=== PATIENT | male | born 1955 | race Two or more races ===

== ENCOUNTER 2022-05-01 16:27 | Inpatient (IN) | payer MEDICARE, MEDICAID ==
[~2022-05-01] VITALS: Ht 170.2 cm; Wt 91.9 kg
[2022-05-01] MEDS: LACTATED RINGER'S 500 ML IV ONE (02:14)
[2022-05-01 18:02] LABS: Albumin 3.4 g/dL (3.4-5.0); BUN/Creatinine Ratio 19.7; Calcium 8.8 mg/dL (8.5-10.1); Magnesium 2.3 mg/dL (1.6-2.6); Potassium 4.5 mmol/L (3.5-5.1)
[2022-05-01 18:06] LABS: Basophils # (auto) 0.1 10 ^3/uL (0-0.2); Basophils % (auto) 0.7 % (0.0-2.0); Eosinophils # (auto) 0.1 10 ^3/uL (0-0.8); Eosinophils % (auto) 1.5 % (0.0-7.0); Hematocrit 48.5 % (41.0-53.0); Lymphocytes # (auto) 2.4 10 ^3/uL (0.4-5.4); Lymphocytes % (auto) 27.8 % (10.0-50.0); Mean Corpuscular Hemoglobin 29.4 pg (28.0-32.0); Mean Corpuscular Volume 89.3 fL (80.0-100.0); Monocytes # (auto) 1.2 10 ^3/uL (0-1.3); Monocytes % (auto) 13.9 % (0.0-12.0); Neutrophils # (auto) 4.8 10 ^3/uL (1.6-8.6); Neutrophils % (auto) 56.1 % (37.0-80.0); Nucleated Red Blood Cells % 0.1 %; Red Blood Cells 5.44 10^6/uL (4.5-5.90); Red Cell Distribution Width 16.2 % (11.8-14.3); White Blood Cell 8.5 10^3/uL (4.4-10.8)
[2022-05-01 18:15] LABS: Bilirubin, Total 1.4 mg/dL (0.2-1.0)
[2022-05-01 18:50] LABS: INR 1.21 (0.9-1.15); Partial Thromboplastin Time 26.7 sec (24.6-33.4)
[2022-05-01] MEDS ORDERED: FUROSEMIDE 40 MG/4 ML VIAL IV ONE (20:15)
[2022-05-01] MEDS ORDERED: LACTATED RINGER'S 500 ML IV ONE (21:15)
[2022-05-01] MEDS ORDERED: IOHEXOL 350 MG/ML 100ML IJ ONE (21:25)
[2022-05-01] MEDS ORDERED: ONDANSETRON HCL 4 MG/2 ML VIAL IV PRN (21:30)
[2022-05-01] MEDS ORDERED: HYDROcodone-ACET 5/325MG TAB PO PRN (21:30)
[2022-05-01] MEDS ORDERED: ACETAMINOPHEN 325 MG TAB PO PRN (21:30)
[2022-05-01] MEDS ORDERED: DOCUSATE SOD 100 MG CAP PO PRN (21:30)
[2022-05-01 21:36] LABS: Bilirubin, Direct 0.5 mg/dL (0-0.2); Bilirubin, Total 1.3 mg/dL (0.2-1.0)
[2022-05-02] MEDS: SODIUM CHLOR 0.9% PF (SALINE LOCK) 10ML VIAL/SYR IV SCH ×4 (01:43→21:51)
[2022-05-02] MEDS: FUROSEMIDE 40 MG/4 ML VIAL IV SCH ×3 (02:14→21:51)
[2022-05-02] MEDS: HEPARIN SODIUM (PORCINE) 5000 UNITS/ML 1ML VIAL SC SCH ×4 (02:15→21:52)
[2022-05-02] MEDS: LACTATED RINGER'S 500 ML IV ONE (02:15)
[2022-05-02 03:45] LABS: Urine Bacteria NONE SEEN /hpf (None Seen); Urine Blood Negative /uL (Negative); Urine Hyaline Cast FEW /lpf (0 - 2); Urine Mucus FEW (None Seen); Urine Specific Gravity 1.037 (1.001-1.035); Urine WBC 15 /hpf (0 - 3)
[2022-05-02 09:00] VITALS: BP 132/91
[2022-05-02 09:51] VITALS: BP 97/53
[2022-05-02] MEDS: CARVEDILOL 12.5 MG TAB PO SCH ×2 (09:57→21:51)
[2022-05-02] MEDS ORDERED: ATORVASTATIN 20 MG TAB PO ONE (12:30)
[2022-05-02] MEDS ORDERED: ASPirin 81 mg TAB PO ONE (12:30)
[2022-05-02 13:00] VITALS: BP 120/76
[2022-05-02] MEDS ORDERED: ATOR20TA50 PO (13:50)
[2022-05-02] MEDS ORDERED: ASPI-325 PO (13:50)
[2022-05-02] MEDS ORDERED: FURO40TA4 PO (13:50)
[2022-05-02] MEDS ORDERED: CARV3.1240 PO (13:50)
[2022-05-02] MEDS ORDERED: POTA1TAB4 PO (13:50)
[2022-05-02] MEDS ORDERED: LOS25T PO (13:50)
[2022-05-02 14:44] LABS: Cholesterol 73 mg/dL (< 200); HDL Cholesterol 21 mg/dL (40-59); LDL Cholesterol 48 mg/dL (< 100); Triglycerides 59 mg/dL (< 150)
[2022-05-02 16:02] LABS: Alcohol, Urine < 3.0 mg/dL (0-10); Amphetamine Screen, Urine POSITIVE (NEGATIVE); Barbiturate Scree,Urine NEGATIVE (NEGATIVE); Benzodiazephine Screen, Urine NEGATIVE (NEGATIVE); Cannabinoid Screen, Urine NEGATIVE (NEGATIVE); Cocaine Screen, Urine NEGATIVE (NEGATIVE); Opiate Scree,Urine NEGATIVE (NEGATIVE); Phencyclidine Screen, Urine NEGATIVE (NEGATIVE)
[2022-05-02 17:00] VITALS: BP 97/53
[2022-05-02 20:00] VITALS: BP 114/84
[2022-05-02] MEDS: ATORVASTATIN 20 MG TAB PO SCH (21:51)
[2022-05-02 22:00] VITALS: BP 114/84
[2022-05-02] MEDS ORDERED: SACUBITRIL-VALSARTAN 24mg/26mg TAB PO SCH (22:00)
[2022-05-03 05:00] VITALS: BP 122/81
[2022-05-03] MEDS: HEPARIN SODIUM (PORCINE) 5000 UNITS/ML 1ML VIAL SC SCH ×3 (06:02→21:31)
[2022-05-03] MEDS: SODIUM CHLOR 0.9% PF (SALINE LOCK) 10ML VIAL/SYR IV SCH ×3 (06:03→21:30)
[2022-05-03 06:25] LABS: BUN/Creatinine Ratio 20.4; Calcium 8.6 mg/dL (8.5-10.1); Potassium 4.3 mmol/L (3.5-5.1)
[2022-05-03] MEDS: EMPAGLIFLOZIN 10 MG TAB PO SCH (06:27)
[2022-05-03 09:34] VITALS: BP 96/63
[2022-05-03] MEDS: ASPirin 81 mg TAB PO SCH (09:58)
[2022-05-03] MEDS: SACUBITRIL-VALSARTAN 24mg/26mg TAB PO SCH ×2 (09:59→21:27)
[2022-05-03] MEDS: cefTRIAXone 1GM/50ML D5W 50 ML IV SCH (10:00)
[2022-05-03] MEDS: FUROSEMIDE 40 MG/4 ML VIAL IV SCH ×2 (10:00→21:30)
[2022-05-03 12:37] VITALS: BP 93/60
[2022-05-03 16:38] VITALS: BP 99/76
[2022-05-03] MEDS: ATORVASTATIN 20 MG TAB PO SCH (21:27)
[2022-05-03 22:00] VITALS: BP 99/76
[2022-05-04 05:00] VITALS: BP 135/86
[2022-05-04] MEDS: HEPARIN SODIUM (PORCINE) 5000 UNITS/ML 1ML VIAL SC SCH ×2 (06:32→14:38)
[2022-05-04] MEDS: EMPAGLIFLOZIN 10 MG TAB PO SCH (06:33)
[2022-05-04] MEDS: SODIUM CHLOR 0.9% PF (SALINE LOCK) 10ML VIAL/SYR IV SCH ×2 (06:33→18:38)
[2022-05-04 09:28] VITALS: BP 127/84
[2022-05-04] MEDS: cefTRIAXone 1GM/50ML D5W 50 ML IV SCH (09:37)
[2022-05-04] MEDS: ASPirin 81 mg TAB PO SCH (09:37)
[2022-05-04] MEDS: SACUBITRIL-VALSARTAN 24mg/26mg TAB PO SCH (09:38)
[2022-05-04] MEDS: FUROSEMIDE 40 MG/4 ML VIAL IV SCH (09:39)
[2022-05-04] MEDS ORDERED: GLUCAGON HYDROCHLORIDE (RDNA) 1 MG VIAL IV ONE (12:30)
[2022-05-04 12:37] VITALS: BP 106/79
[2022-05-04 16:26] VITALS: BP 127/84
[2022-05-04 16:37] VITALS: BP 113/85
== END 2022-05-04 18:00 | DRG 291 ==
LOC: ER 16:27 → TELE 21:18 → TELE-EAST 05-02 08:24
PROVIDERS: ADMIT Internal Medicine; ATTEND Family Medicine
DX: I11.0 Hypertensive heart disease with heart failure (principal); I50.43 Acute on chronic combined systolic (congestive) and diastolic (congestive) heart failure; N39.0 Urinary tract infection, site not specified; R17 Unspecified jaundice; E66.9 Obesity, unspecified; E78.5 Hyperlipidemia, unspecified; I25.10 Atherosclerotic heart disease of native coronary artery without angina pectoris; F15.90 Other stimulant use, unspecified, uncomplicated; Z20.822 Contact with and (suspected) exposure to COVID-19; Z95.1 Presence of aortocoronary bypass graft; Z68.31 Body mass index [BMI] 31.0-31.9, adult
CPT/HCPCS: 36415; 71045; 71275; 76705; 80048; 80053; 80061; 80307; 81001; 82247; 82248; 83036; 83605; 83735; 83880; 84443; 84484; 85025; 85379; 85610; 85730; 87040; 87086; 87426; 87804; 93005; 93306; 93925; 97163; G0378; J0696

== ENCOUNTER 2023-05-19 22:14 | Inpatient (IN) | payer MEDICARE, MEDICAID ==
[~2023-05-19] VITALS: Ht 170.2 cm; Wt 76.5 kg
[~2023-05-19 22:14] MED LIST: ASPI-325 PO; ASPI-543 PO; ATOR20TA PO; ATOR20TA50 PO; CAR125T OR; CARV12.544 PO; CARV3.1240 PO; EMPA1TAB PO; FURO1TAB31 PO; FURO40TA4 PO; LISI-275 PO; LOS25T PO; POTA-220 PO; POTA1TAB4 PO
[2023-05-19 22:38] LABS: Basophils # (auto) 0 10 ^3/uL (0-0.2); Basophils % (auto) 0.6 % (0.0-2.0); Eosinophils # (auto) 0.1 10 ^3/uL (0-0.8); Eosinophils % (auto) 0.7 % (0.0-7.0); Hematocrit 42.3 % (41.0-53.0); Hemoglobin 13.9 g/dL (13.5-17.5); Lymphocytes % (auto) 24.9 % (10.0-50.0); Mean Corpuscular Hemoglobin 30.9 pg (28.0-32.0); Mean Corpuscular Hgb Conc. 32.7 g/dL (32.0-36.0); Mean Corpuscular Volume 94.4 fL (80.0-100.0); Monocytes # (auto) 0.9 10 ^3/uL (0-1.3); Monocytes % (auto) 11.4 % (0.0-12.0); Neutrophils # (auto) 5.1 10 ^3/uL (1.6-8.6); Neutrophils % (auto) 62.4 % (37.0-80.0); Red Blood Cells 4.48 10^6/uL (4.5-5.90); Red Cell Distribution Width 14.3 % (11.8-14.3); White Blood Cell 8.2 10^3/uL (4.4-10.8)
[2023-05-19 22:43] LABS: Chloride 105 mmol/L (98-107); Potassium 4.2 mmol/L (3.5-5.1); Sodium 136 mmol/L (136-145)
[2023-05-19 22:44] LABS: Anion Gap 6 (5-15); Carbon Dioxide 25 mmol/L (20-30)
[2023-05-19 22:50] VITALS: RESP 20; O2SAT 98
[2023-05-19 22:50] LABS: BUN/Creatinine Ratio 15.8 (10.0-20.0); Blood Urea Nitrogen 26 mg/dL (9-23); Glucose 164 mg/dL (74-106)
[2023-05-19] MEDS: PIPERACILLIN-TAZOB 3.375GM 100 ML IV ONE (23:44)
[2023-05-19] MEDS: SODIUM CHLORIDE 0.9% 1,000 ML IV ONE (23:44)
[2023-05-20] VITALS (31 sets, daily range): BP systolic 95–122; BP diastolic 62–78; PULSE 54–86; RESP 18–25; TEMP 97.7–98.6; O2SAT 91–100
[2023-05-20] MEDS: IPRATROPIUM BROM 0.5 MG/2.5ML INH SOL NEB ONE (00:16)
[2023-05-20] MEDS: ALBUTEROL SULF 2.5 MG/0.5ML(0.5%) NEB SOLN NEB ONE (00:16)
[2023-05-20] MEDS: FUROSEMIDE 20 MG/2 ML VIAL IV ONE (00:41)
[2023-05-20 01:21] LABS: COVID19 ANTIGEN SOFIA FIA NEGATIVE (NEGATIVE); Rapid Influenza A Negative (Negative); Rapid Influenza B Negative (Negative)
[2023-05-20] MEDS ORDERED: DOCUSATE SOD 100 MG CAP PO PRN (01:30)
[2023-05-20] MEDS ORDERED: ACETAMINOPHEN 325 MG TAB PO PRN (01:30)
[2023-05-20] MEDS ORDERED: NITROGLYCERIN 0.4 MG SL TAB SL PRN (02:15)
[2023-05-20] MEDS: ENOXAPARIN SOD 80 MG/0.8ML SYRINGE SC ONE (02:30)
[2023-05-20] MEDS: HYDROcodone-ACET 5/325MG TAB PO PRN (02:31)
[2023-05-20] MEDS: MORPHINE SULFATE INJ 2 MG/ml SYRG IV PRN ×2 (03:25→08:09)
[2023-05-20] MEDS: ONDANSETRON HCL 4 MG/2 ML VIAL IV PRN (03:26)
[2023-05-20 03:32] LABS: Urine Bacteria NONE SEEN /hpf (None Seen); Urine Blood Negative /uL (Negative); Urine Clarity Clear (Clear); Urine Color Yellow (Yellow); Urine Protein, UAD TRACE (Negative); Urine Specific Gravity 1.021 (1.001-1.035); Urine Urobilinogen Normal (Negative); Urine WBC 7 /hpf (0 - 3); Urine pH 5.5 (5.0-8.0)
[2023-05-20 03:38] LABS: Amphetamine Screen, Urine Pos (NEGATIVE); Barbiturate Scree,Urine Neg (NEGATIVE); Benzodiazephine Screen, Urine Neg (NEGATIVE); Cocaine Screen, Urine Neg (NEGATIVE); Opiate Scree,Urine Neg (NEGATIVE)
[2023-05-20 03:39] LABS: Cannabinoid Screen, Urine Neg (NEGATIVE); Phencyclidine Screen, Urine Neg (NEGATIVE)
[2023-05-20 04:16] LABS: Base Excess -4.4 mmol/L (-2.0-2.0)
[2023-05-20] MEDS: LORazepam 2MG/ML-1ML VIAL IV PRN (04:25)
[2023-05-20] MEDS: SODIUM CHLOR 0.9% PF (SALINE LOCK) 10ML VIAL/SYR IV SCH (06:02)
[2023-05-20 10:01] LABS: INR 1.5 (0.9-1.15); Prothrombin Time 15.3 sec (9.3-11.8)
[2023-05-20] MEDS: AZITHROMYCIN 500MG/ 250ML 250 ML IV SCH (10:07)
[2023-05-20] MEDS: FUROSEMIDE 40 MG/4 ML VIAL IV SCH (10:09)
[2023-05-20] MEDS: ASPirin 81 mg TAB PO SCH (10:09)
[2023-05-20] MEDS: CARVEDILOL 12.5 MG TAB PO SCH (10:10)
[2023-05-20] MEDS: ALBUTEROL SULF 2.5 MG/0.5ML(0.5%) NEB SOLN NEB PRN (12:48)
[2023-05-20] MEDS: IPRATROPIUM BROM 0.5 MG/2.5ML INH SOL NEB PRN (12:48)
[2023-05-20] MEDS: FUROSEMIDE 40 MG/4 ML VIAL IV ONE (13:13)
[2023-05-20 13:50] LABS: Base Excess -7.3 mmol/L (-2.0-2.0)
[2023-05-20] MEDS ORDERED: SUCCINYLCHOLINE CHLORIDE 20 MG/ML 10ML VIAL IV ONE (14:00)
[2023-05-20] MEDS: ETOMIDATE (2MG/ML) 20ML VIAL IV ONE ×3 (14:08→14:18)
[2023-05-20] MEDS: SODIUM BICARBONATE 50ML VIAL 50 ML in SOD CHL 0.45% 1,000 ML IV SCH (14:15)
[2023-05-20] MEDS: MIDAZOLAM DRIP 50 mg/50mL 50 ML IV ONE (14:18)
[2023-05-20] MEDS: SUCCINYLCHOLINE CHLORIDE 20 MG/ML 10ML VIAL IV ONE ×2 (14:18→14:19)
[2023-05-20] MEDS: MIDAZOLAM DRIP 50 mg/50mL 50 ML IV SCH (14:21)
[2023-05-20] MEDS: SODIUM BICARBONATE 8.4 % INJ 50ML VIAL IV ONE ×2 (14:33→15:00)
[2023-05-20] MEDS: fentaNYL Drip 2500mCg/250mlNS 250 ML IV SCH (14:55)
[2023-05-20] MEDS: NOREPINEPHRINE 8 MG/250ML KIT 250 ML IV SCH (14:56)
[2023-05-20] MEDS: NOREPINEPHRINE 8 MG/250ML KIT 250 ML IV ONE (15:00)
[2023-05-20] MEDS ORDERED: HEPARIN SODIUM (PORCINE) 5000 UNITS/ML 1ML VIAL SC ONE (16:00)
[2023-05-20 16:24] LABS: Base Excess -3.5 mmol/L (-2.0-2.0)
[2023-05-20 17:27] LABS: Basophils # (auto) 0.1 10 ^3/uL (0-0.2); Basophils % (auto) 0.6 % (0.0-2.0); Eosinophils # (auto) 0 10 ^3/uL (0-0.8); Eosinophils % (auto) 0.4 % (0.0-7.0); Hematocrit 46.1 % (41.0-53.0); Hemoglobin 14.9 g/dL (13.5-17.5); Lymphocytes # (auto) 2.2 10 ^3/uL (0.4-5.4); Lymphocytes % (auto) 21.4 % (10.0-50.0); Mean Corpuscular Hemoglobin 30.9 pg (28.0-32.0); Mean Corpuscular Hgb Conc. 32.4 g/dL (32.0-36.0); Mean Corpuscular Volume 95.4 fL (80.0-100.0); Monocytes # (auto) 1.7 10 ^3/uL (0-1.3); Monocytes % (auto) 16.6 % (0.0-12.0); Neutrophils # (auto) 6.3 10 ^3/uL (1.6-8.6); Nucleated Red Blood Cells % 0.2 %; Red Blood Cells 4.83 10^6/uL (4.5-5.90); Red Cell Distribution Width 14.5 % (11.8-14.3); White Blood Cell 10.3 10^3/uL (4.4-10.8)
[2023-05-20 17:30] LABS: Chloride 105 mmol/L (98-107); Potassium 4.2 mmol/L (3.5-5.1); Sodium 139 mmol/L (136-145)
[2023-05-20 17:31] LABS: Anion Gap 11 (5-15); Calcium 8.7 mg/dL (8.5-10.1); Carbon Dioxide 23 mmol/L (20-30)
[2023-05-20 17:36] LABS: BUN/Creatinine Ratio 22.9 (10.0-20.0); Glucose 130 mg/dL (74-106)
[2023-05-20 17:38] LABS: Blood Urea Nitrogen 38 mg/dL (9-23)
[2023-05-20] MEDS: ALBUTEROL SULF 2.5 MG/0.5ML(0.5%) NEB SOLN NEB SCH (20:41)
[2023-05-20] MEDS: IPRATROPIUM BROM 0.5 MG/2.5ML INH SOL NEB SCH (20:42)
[2023-05-20] MEDS: ATORVASTATIN 20 MG TAB PO SCH (21:10)
[2023-05-20] MEDS: PIPERACILLIN-TAZOB 3.375GM 100 ML IV SCH (21:11)
[2023-05-21] VITALS (111 sets, daily range): BP systolic 87–120; BP diastolic 53–73; PULSE 54–70; RESP 12–19; TEMP 97.7–99.4; O2SAT 87–100
[2023-05-21 03:58] LABS: Basophils # (auto) 0 10 ^3/uL (0-0.2); Basophils % (auto) 0.5 % (0.0-2.0); Eosinophils # (auto) 0.1 10 ^3/uL (0-0.8); Eosinophils % (auto) 1.6 % (0.0-7.0); Hematocrit 44.2 % (41.0-53.0); Hemoglobin 14.5 g/dL (13.5-17.5); Lymphocytes # (auto) 2.4 10 ^3/uL (0.4-5.4); Lymphocytes % (auto) 26.8 % (10.0-50.0); Mean Corpuscular Hemoglobin 31.3 pg (28.0-32.0); Mean Corpuscular Hgb Conc. 32.8 g/dL (32.0-36.0); Mean Corpuscular Volume 95.2 fL (80.0-100.0); Monocytes # (auto) 1.5 10 ^3/uL (0-1.3); Monocytes % (auto) 16.8 % (0.0-12.0); Neutrophils # (auto) 4.8 10 ^3/uL (1.6-8.6); Neutrophils % (auto) 54.3 % (37.0-80.0); Red Blood Cells 4.64 10^6/uL (4.5-5.90); Red Cell Distribution Width 14.4 % (11.8-14.3); White Blood Cell 8.8 10^3/uL (4.4-10.8)
[2023-05-21 04:04] LABS: Alanine Aminotransferase 47 U/L (7-40); Albumin 3.4 g/dL (3.2-4.8); Alkaline Phosphatase 105 U/L (46-116); Aspartate Aminotransferase 62 U/L (13-40); BUN/Creatinine Ratio 20.1 (10.0-20.0); Bilirubin, Total 1.2 mg/dL (0.2-1.0); Calcium 8.6 mg/dL (8.5-10.1); Chloride 107 mmol/L (98-107); Glucose 133 mg/dL (74-106); Potassium 3.6 mmol/L (3.5-5.1); Sodium 141 mmol/L (136-145); Total Protein 5.9 g/dL (5.7-8.2)
[2023-05-21 04:06] LABS: Anion Gap 9 (5-15); Carbon Dioxide 25 mmol/L (20-30)
[2023-05-21 04:17] LABS: Blood Urea Nitrogen 27 mg/dL (9-23)
[2023-05-21] MEDS: FUROSEMIDE 40 MG/4 ML VIAL IV SCH (05:22)
[2023-05-21 07:33] LABS: Base Excess -0.2 mmol/L (-2.0-2.0)
[2023-05-21] MEDS: EMPAGLIFLOZIN 10 MG TAB PO SCH (10:00)
[2023-05-21] MEDS: ENOXAPARIN SOD 40 MG/0.4 ML SYRINGE SC SCH (10:58)
[2023-05-21 19:39] LABS: Potassium 3.7 mmol/L (3.5-5.1)
[2023-05-21] MEDS: PANTOPRAZOLE 40 MG/10 ML VIAL INJ IV SCH (22:16)
[2023-05-22] VITALS (115 sets, daily range): BP systolic 86–125; BP diastolic 50–75; PULSE 55–93; RESP 13–20; TEMP 98.6–100; O2SAT 87–100
[2023-05-22 04:02] LABS: Hematocrit 47.1 % (41.0-53.0); Hemoglobin 15.1 g/dL (13.5-17.5); Mean Corpuscular Hemoglobin 31.3 pg (28.0-32.0); Red Cell Distribution Width 14.6 % (11.8-14.3); White Blood Cell 17.6 10^3/uL (4.4-10.8)
[2023-05-22 04:09] LABS: Band Neutrophils % (manual) 0; Basophils % (manual) 0 (0.0-2.0); Blast Cells 0; Metamyelocytes % 0; Myelocytes % 0; Promyelocytes % 0; Reactive Lymphocytes 0
[2023-05-22 04:15] LABS: Alanine Aminotransferase 38 U/L (7-40); Albumin 3.1 g/dL (3.2-4.8); Alkaline Phosphatase 95 U/L (46-116); Anion Gap 6 (5-15); Aspartate Aminotransferase 45 U/L (13-40); BUN/Creatinine Ratio 11.5 (10.0-20.0); Blood Urea Nitrogen 12 mg/dL (9-23); Calcium 8.2 mg/dL (8.7-10.4); Carbon Dioxide 28 mmol/L (20-30); Chloride 107 mmol/L (98-107); Glucose 125 mg/dL (74-106); Potassium 3.6 mmol/L (3.5-5.1); Sodium 141 mmol/L (136-145)
[2023-05-22 04:16] LABS: Total Protein 5.7 g/dL (5.7-8.2)
[2023-05-22 05:00] LABS: Eosinophils % (manual) 1 (0-7); Lymphocytes % (manual) 25 (10.0-50.0); Monocytes % (manual) 21 (0-12); Platelet Estimate Adequate
[2023-05-22 07:35] LABS: Base Excess 4.6 mmol/L (-2.0-2.0)
[2023-05-22] MEDS ORDERED: Glucerna 1.2 Cal 1Liter BOTTLE GT SCH (10:45)
[2023-05-22] MEDS: METOCLOPRAMIDE HCL 5MG/ml INJ 2ml VIAL IV SCH (14:28)
[2023-05-22] MEDS: POTASSIUM CHL 20MEQ/100ML 100 ML IV SCH (16:38)
[2023-05-22] MEDS: Jevity 1.2 Cal/Fiber 1 Liter GT SCH (18:36)
[2023-05-22] MEDS: FUROSEMIDE 20 MG/2 ML VIAL IV SCH (22:18)
[2023-05-23] VITALS (116 sets, daily range): BP systolic 86–123; BP diastolic 45–77; PULSE 52–65; RESP 17–19; TEMP 98.2–100.2; O2SAT 89–100
[2023-05-23 03:56] LABS: Basophils # (auto) 0.1 10 ^3/uL (0-0.2); Basophils % (auto) 0.9 % (0.0-2.0); Eosinophils # (auto) 0.2 10 ^3/uL (0-0.8); Hematocrit 43.2 % (41.0-53.0); Hemoglobin 14.2 g/dL (13.5-17.5); Lymphocytes # (auto) 1.8 10 ^3/uL (0.4-5.4); Lymphocytes % (auto) 24.8 % (10.0-50.0); Mean Corpuscular Hemoglobin 30.9 pg (28.0-32.0); Mean Corpuscular Volume 93.8 fL (80.0-100.0); Monocytes % (auto) 14.2 % (0.0-12.0); Neutrophils # (auto) 4.1 10 ^3/uL (1.6-8.6); Neutrophils % (auto) 57.1 % (37.0-80.0); Nucleated Red Blood Cells % 0.2 %; Red Cell Distribution Width 14.5 % (11.8-14.3); White Blood Cell 7.2 10^3/uL (4.4-10.8)
[2023-05-23 04:04] LABS: Chloride 106 mmol/L (98-107); Potassium 3.3 mmol/L (3.5-5.1); Sodium 142 mmol/L (136-145)
[2023-05-23 04:05] LABS: Anion Gap 4 (5-15); Calcium 8.2 mg/dL (8.7-10.4); Carbon Dioxide 32 mmol/L (20-30)
[2023-05-23 04:10] LABS: BUN/Creatinine Ratio 10.7 (10.0-20.0); Blood Urea Nitrogen 11 mg/dL (9-23); Glucose 120 mg/dL (74-106)
[2023-05-23] MEDS: POTASSIUM CHL 20MEQ/100ML 100 ML IV ONE (06:14)
[2023-05-23 08:10] LABS: Base Excess -0.5 mmol/L (-2.0-2.0)
[2023-05-23] MEDS: POTASSIUM CHL 20MEQ/100ML 100 ML IV SCH (11:52)
[2023-05-23] MEDS: DOXYCYCLINE 100MG/250ML 250 ML IV SCH (20:10)
[2023-05-24] VITALS (106 sets, daily range): BP systolic 87–140; BP diastolic 44–88; PULSE 48–85; RESP 13–28; TEMP 97.2–99.9; O2SAT 82–100
[2023-05-24 04:21] LABS: Hematocrit 45.8 % (41.0-53.0); Hemoglobin 14.8 g/dL (13.5-17.5); Mean Corpuscular Hgb Conc. 32.4 g/dL (32.0-36.0); Mean Corpuscular Volume 95.8 fL (80.0-100.0); Red Blood Cells 4.78 10^6/uL (4.5-5.90); Red Cell Distribution Width 14.4 % (11.8-14.3); White Blood Cell 8.8 10^3/uL (4.4-10.8)
[2023-05-24 04:27] LABS: Band Neutrophils % (manual) 0; Basophils % (manual) 0 (0.0-2.0); Blast Cells 0; Metamyelocytes % 0; Myelocytes % 0; Promyelocytes % 0; Reactive Lymphocytes 0
[2023-05-24 04:33] LABS: Chloride 107 mmol/L (98-107); Potassium 3.9 mmol/L (3.5-5.1); Sodium 142 mmol/L (136-145)
[2023-05-24 04:34] LABS: Anion Gap 5 (5-15); Calcium 8.9 mg/dL (8.5-10.1); Carbon Dioxide 30 mmol/L (20-30)
[2023-05-24 04:40] LABS: BUN/Creatinine Ratio 6.3 (10.0-20.0); Blood Urea Nitrogen 8 mg/dL (9-23); Glucose 145 mg/dL (74-106)
[2023-05-24 05:45] LABS: Eosinophils % (manual) 4 (0-7); Lymphocytes % (manual) 23 (10.0-50.0); Monocytes % (manual) 18 (0-12); Platelet Estimate Adequate
[2023-05-24 08:00] LABS: Base Excess 3.1 mmol/L (-2.0-2.0)
[2023-05-24] MEDS: ACETAMINOPHEN 650 MG RECT SUPP PR PRN (08:27)
[2023-05-25] VITALS (111 sets, daily range): BP systolic 90–159; BP diastolic 43–121; PULSE 52–106; RESP 14–28; TEMP 98.2–99.3; O2SAT 67–100
[2023-05-25 04:02] LABS: Basophils # (auto) 0.1 10 ^3/uL (0-0.2); Basophils % (auto) 1.1 % (0.0-2.0); Eosinophils # (auto) 0.3 10 ^3/uL (0-0.8); Eosinophils % (auto) 3.6 % (0.0-7.0); Hematocrit 45.7 % (41.0-53.0); Hemoglobin 15.1 g/dL (13.5-17.5); Lymphocytes # (auto) 1.9 10 ^3/uL (0.4-5.4); Lymphocytes % (auto) 26.2 % (10.0-50.0); Mean Corpuscular Hemoglobin 31.2 pg (28.0-32.0); Mean Corpuscular Volume 94.4 fL (80.0-100.0); Monocytes # (auto) 0.8 10 ^3/uL (0-1.3); Monocytes % (auto) 11.3 % (0.0-12.0); Neutrophils # (auto) 4.2 10 ^3/uL (1.6-8.6); Neutrophils % (auto) 57.8 % (37.0-80.0); Nucleated Red Blood Cells % 0.1 %; Red Blood Cells 4.84 10^6/uL (4.5-5.90); Red Cell Distribution Width 14.2 % (11.8-14.3); White Blood Cell 7.2 10^3/uL (4.4-10.8)
[2023-05-25 04:11] LABS: Chloride 106 mmol/L (98-107); Potassium 3.5 mmol/L (3.5-5.1); Sodium 141 mmol/L (136-145)
[2023-05-25 04:12] LABS: Anion Gap 5 (5-15); Carbon Dioxide 30 mmol/L (20-30)
[2023-05-25 04:13] LABS: Calcium 8.9 mg/dL (8.7-10.4)
[2023-05-25 04:17] LABS: BUN/Creatinine Ratio 9.1 (10.0-20.0); Blood Urea Nitrogen 9 mg/dL (9-23); Glucose 113 mg/dL (74-106)
[2023-05-25 06:49] LABS: Base Excess 4.9 mmol/L (-2.0-2.0)
[2023-05-26] VITALS (100 sets, daily range): BP systolic 80–147; BP diastolic 49–102; PULSE 58–105; RESP 11–31; TEMP 97.7–100.2; O2SAT 92–100
[2023-05-26 02:44] LABS: Basophils # (auto) 0.1 10 ^3/uL (0-0.2); Basophils % (auto) 0.9 % (0.0-2.0); Eosinophils # (auto) 0.2 10 ^3/uL (0-0.8); Hematocrit 44.5 % (41.0-53.0); Lymphocytes # (auto) 1.4 10 ^3/uL (0.4-5.4); Lymphocytes % (auto) 21.7 % (10.0-50.0); Mean Corpuscular Hemoglobin 31.6 pg (28.0-32.0); Mean Corpuscular Hgb Conc. 33.6 g/dL (32.0-36.0); Monocytes # (auto) 0.7 10 ^3/uL (0-1.3); Monocytes % (auto) 10.4 % (0.0-12.0); Neutrophils # (auto) 4.3 10 ^3/uL (1.6-8.6); Nucleated Red Blood Cells % 0.1 %; Red Blood Cells 4.73 10^6/uL (4.5-5.90); Red Cell Distribution Width 14.1 % (11.8-14.3); White Blood Cell 6.7 10^3/uL (4.4-10.8)
[2023-05-26 02:49] LABS: Chloride 105 mmol/L (98-107); Potassium 3.2 mmol/L (3.5-5.1); Sodium 141 mmol/L (136-145)
[2023-05-26 02:50] LABS: Anion Gap 6 (5-15); Calcium 8.5 mg/dL (8.7-10.4); Carbon Dioxide 30 mmol/L (20-30)
[2023-05-26 02:55] LABS: BUN/Creatinine Ratio 9.3 (10.0-20.0); Blood Urea Nitrogen 9 mg/dL (9-23); Glucose 118 mg/dL (74-106)
[2023-05-26] MEDS: POTASSIUM CHL 20MEQ/100ML 100 ML IV SCH (05:48)
[2023-05-26 15:39] LABS: Base Excess 5.7 mmol/L (-2.0-2.0)
[2023-05-27] VITALS (35 sets, daily range): BP systolic 102–138; BP diastolic 44–92; PULSE 81–101; RESP 12–32; TEMP 98.3–99.7; O2SAT 90–99
[2023-05-27 04:09] LABS: Basophils # (auto) 0.1 10 ^3/uL (0-0.2); Basophils % (auto) 0.7 % (0.0-2.0); Eosinophils # (auto) 0.2 10 ^3/uL (0-0.8); Eosinophils % (auto) 1.9 % (0.0-7.0); Hematocrit 44.7 % (41.0-53.0); Hemoglobin 14.7 g/dL (13.5-17.5); Lymphocytes # (auto) 1.8 10 ^3/uL (0.4-5.4); Mean Corpuscular Hemoglobin 30.6 pg (28.0-32.0); Mean Corpuscular Volume 92.8 fL (80.0-100.0); Monocytes # (auto) 0.9 10 ^3/uL (0-1.3); Monocytes % (auto) 10.5 % (0.0-12.0); Neutrophils % (auto) 66.9 % (37.0-80.0); Red Blood Cells 4.82 10^6/uL (4.5-5.90); Red Cell Distribution Width 13.8 % (11.8-14.3)
[2023-05-27 04:14] LABS: Chloride 103 mmol/L (98-107); Potassium 3.1 mmol/L (3.5-5.1); Sodium 138 mmol/L (136-145)
[2023-05-27 04:15] LABS: Anion Gap 6 (5-15); Calcium 8.9 mg/dL (8.7-10.4); Carbon Dioxide 29 mmol/L (20-30)
[2023-05-27 04:20] LABS: Blood Urea Nitrogen 10 mg/dL (9-23); Glucose 97 mg/dL (74-106)
[2023-05-27] MEDS: POTASSIUM CHL 20MEQ/100ML 100 ML IV SCH (05:42)
[2023-05-28] VITALS (24 sets, daily range): BP systolic 107–129; BP diastolic 65–89; PULSE 62–93; RESP 16–20; TEMP 98–99; O2SAT 92–99
[2023-05-28 06:30] LABS: Basophils # (auto) 0.1 10 ^3/uL (0-0.2); Basophils % (auto) 0.8 % (0.0-2.0); Chloride 105 mmol/L (98-107); Eosinophils # (auto) 0.3 10 ^3/uL (0-0.8); Eosinophils % (auto) 3.2 % (0.0-7.0); Hematocrit 45.7 % (41.0-53.0); Hemoglobin 14.8 g/dL (13.5-17.5); Lymphocytes # (auto) 2.1 10 ^3/uL (0.4-5.4); Lymphocytes % (auto) 26.1 % (10.0-50.0); Mean Corpuscular Hemoglobin 30.2 pg (28.0-32.0); Mean Corpuscular Hgb Conc. 32.3 g/dL (32.0-36.0); Mean Corpuscular Volume 93.6 fL (80.0-100.0); Monocytes % (auto) 12.4 % (0.0-12.0); Neutrophils # (auto) 4.6 10 ^3/uL (1.6-8.6); Neutrophils % (auto) 57.5 % (37.0-80.0); Nucleated Red Blood Cells % 0.1 %; Potassium 3.2 mmol/L (3.5-5.1); Red Blood Cells 4.88 10^6/uL (4.5-5.90); Red Cell Distribution Width 14.1 % (11.8-14.3); Sodium 138 mmol/L (136-145)
[2023-05-28 06:31] LABS: Anion Gap 8 (5-15); Calcium 8.8 mg/dL (8.7-10.4); Carbon Dioxide 25 mmol/L (20-30)
[2023-05-28 06:36] LABS: BUN/Creatinine Ratio 10.8 (10.0-20.0); Blood Urea Nitrogen 9 mg/dL (9-23); Glucose 101 mg/dL (74-106)
[2023-05-29] VITALS (15 sets, daily range): BP systolic 102–126; BP diastolic 55–85; PULSE 65–97; RESP 16–20; TEMP 98–98.7; O2SAT 92–100
[2023-05-29] MEDS: KETOROLAC TROMETH 30 MG/ML 1ML VIAL IV PRN (00:25)
[2023-05-29] MEDS ORDERED: ACETAMINOPHEN 325 MG TAB PO PRN (19:30)
[2023-05-29] MEDS: CARVEDILOL 3.125 MG TAB PO SCH (21:13)
[2023-05-29] MEDS ORDERED: ALBUTEROL SULF 2.5 MG/0.5ML(0.5%) NEB SOLN NEB PRN (21:15)
[2023-05-29] MEDS ORDERED: IPRATROPIUM BROM 0.5 MG/2.5ML INH SOL NEB PRN (21:15)
[2023-05-30] VITALS (10 sets, daily range): BP systolic 92–127; BP diastolic 58–87; PULSE 58–99; RESP 16–20; TEMP 98.1–98.6; O2SAT 92–96
[2023-05-30 10:46] LABS: Basophils # (auto) 0.1 10 ^3/uL (0-0.2); Basophils % (auto) 1.4 % (0.0-2.0); Eosinophils # (auto) 0.2 10 ^3/uL (0-0.8); Eosinophils % (auto) 3.2 % (0.0-7.0); Hematocrit 48.5 % (41.0-53.0); Hemoglobin 15.5 g/dL (13.5-17.5); Lymphocytes # (auto) 1.8 10 ^3/uL (0.4-5.4); Lymphocytes % (auto) 24.4 % (10.0-50.0); Mean Corpuscular Volume 93.6 fL (80.0-100.0); Monocytes # (auto) 0.8 10 ^3/uL (0-1.3); Monocytes % (auto) 11.1 % (0.0-12.0); Neutrophils # (auto) 4.4 10 ^3/uL (1.6-8.6); Neutrophils % (auto) 59.9 % (37.0-80.0); Nucleated Red Blood Cells % 0.1 %; Red Blood Cells 5.18 10^6/uL (4.5-5.90); Red Cell Distribution Width 14.3 % (11.8-14.3); White Blood Cell 7.4 10^3/uL (4.4-10.8)
[2023-05-30 11:04] LABS: Anion Gap 9 (5-15); Carbon Dioxide 22 mmol/L (20-30); Chloride 108 mmol/L (98-107); Potassium 3.3 mmol/L (3.5-5.1); Sodium 139 mmol/L (136-145)
[2023-05-30 11:06] LABS: Calcium 9.3 mg/dL (8.5-10.1)
[2023-05-30 11:10] LABS: BUN/Creatinine Ratio 14.6 (10.0-20.0); Blood Urea Nitrogen 15 mg/dL (9-23); Glucose 173 mg/dL (74-106)
[2023-05-30] MEDS: SPIRONOLACTONE 25 MG TAB PO SCH (11:19)
[2023-05-30] MEDS: POTASSIUM CHL 20 Meq TABLET PO ONE (12:26)
[2023-05-30] MEDS: TEMAZEPAM 15 MG CAP PO PRN (21:32)
[2023-05-31] VITALS (10 sets, daily range): BP systolic 103–131; BP diastolic 61–89; PULSE 71–92; RESP 16–20; TEMP 97.3–98.8; O2SAT 93–98
[2023-05-31 06:04] LABS: Basophils # (auto) 0.1 10 ^3/uL (0-0.2); Basophils % (auto) 1.6 % (0.0-2.0); Eosinophils # (auto) 0.3 10 ^3/uL (0-0.8); Eosinophils % (auto) 4.1 % (0.0-7.0); Hematocrit 48.5 % (41.0-53.0); Hemoglobin 15.8 g/dL (13.5-17.5); Lymphocytes # (auto) 2.2 10 ^3/uL (0.4-5.4); Lymphocytes % (auto) 27.8 % (10.0-50.0); Mean Corpuscular Hemoglobin 30.1 pg (28.0-32.0); Mean Corpuscular Hgb Conc. 32.7 g/dL (32.0-36.0); Mean Corpuscular Volume 92.2 fL (80.0-100.0); Monocytes # (auto) 1.2 10 ^3/uL (0-1.3); Neutrophils # (auto) 4.2 10 ^3/uL (1.6-8.6); Neutrophils % (auto) 51.5 % (37.0-80.0); Nucleated Red Blood Cells % 0.1 %; Red Blood Cells 5.26 10^6/uL (4.5-5.90); Red Cell Distribution Width 14.3 % (11.8-14.3); White Blood Cell 8.1 10^3/uL (4.4-10.8)
[2023-05-31 06:07] LABS: Anion Gap 9 (5-15); Carbon Dioxide 23 mmol/L (20-30); Chloride 106 mmol/L (98-107); Potassium 3.6 mmol/L (3.5-5.1); Sodium 138 mmol/L (136-145)
[2023-05-31 06:08] LABS: Calcium 9.6 mg/dL (8.5-10.1)
[2023-05-31 06:13] LABS: BUN/Creatinine Ratio 16.7 (10.0-20.0); Blood Urea Nitrogen 18 mg/dL (9-23); Glucose 113 mg/dL (74-106)
[2023-06-01] VITALS (9 sets, daily range): BP systolic 94–124; BP diastolic 61–82; PULSE 49–101; RESP 16–18; TEMP 97.9–98.7; O2SAT 94–98
[2023-06-01 05:24] LABS: Basophils # (auto) 0.1 10 ^3/uL (0-0.2); Basophils % (auto) 0.7 % (0.0-2.0); Eosinophils # (auto) 0.3 10 ^3/uL (0-0.8); Eosinophils % (auto) 3.5 % (0.0-7.0); Hematocrit 49.7 % (41.0-53.0); Hemoglobin 16.2 g/dL (13.5-17.5); Lymphocytes # (auto) 2.9 10 ^3/uL (0.4-5.4); Lymphocytes % (auto) 35.2 % (10.0-50.0); Mean Corpuscular Hemoglobin 29.9 pg (28.0-32.0); Mean Corpuscular Hgb Conc. 32.5 g/dL (32.0-36.0); Monocytes % (auto) 11.7 % (0.0-12.0); Neutrophils # (auto) 4.1 10 ^3/uL (1.6-8.6); Neutrophils % (auto) 48.9 % (37.0-80.0); Nucleated Red Blood Cells % 0.1 %; Red Cell Distribution Width 14.1 % (11.8-14.3); White Blood Cell 8.3 10^3/uL (4.4-10.8)
[2023-06-01 05:38] LABS: Calcium 9.6 mg/dL (8.5-10.1); Chloride 106 mmol/L (98-107); Potassium 3.8 mmol/L (3.5-5.1); Sodium 139 mmol/L (136-145)
[2023-06-01 05:39] LABS: Anion Gap 9 (5-15); Carbon Dioxide 24 mmol/L (20-30)
[2023-06-01 05:44] LABS: Blood Urea Nitrogen 20 mg/dL (9-23); Glucose 117 mg/dL (74-106)
[2023-06-02 05:14] VITALS: BP 100/73; PULSE 80; RESP 18; TEMP 98.5; O2SAT 95
[2023-06-02 07:23] LABS: Chloride 106 mmol/L (98-107); Potassium 3.5 mmol/L (3.5-5.1); Sodium 139 mmol/L (136-145)
[2023-06-02 07:24] LABS: Anion Gap 8 (5-15); Calcium 9.5 mg/dL (8.5-10.1); Carbon Dioxide 25 mmol/L (20-30)
[2023-06-02 07:28] LABS: Basophils # (auto) 0.2 10 ^3/uL (0-0.2); Basophils % (auto) 1.9 % (0.0-2.0); Eosinophils # (auto) 0.3 10 ^3/uL (0-0.8); Eosinophils % (auto) 3.2 % (0.0-7.0); Hematocrit 47.6 % (41.0-53.0); Hemoglobin 15.8 g/dL (13.5-17.5); Lymphocytes % (auto) 36.6 % (10.0-50.0); Mean Corpuscular Hemoglobin 30.6 pg (28.0-32.0); Mean Corpuscular Hgb Conc. 33.2 g/dL (32.0-36.0); Mean Corpuscular Volume 92.2 fL (80.0-100.0); Monocytes # (auto) 1.1 10 ^3/uL (0-1.3); Monocytes % (auto) 13.3 % (0.0-12.0); Neutrophils # (auto) 3.8 10 ^3/uL (1.6-8.6); Nucleated Red Blood Cells % 0.1 %; Red Blood Cells 5.16 10^6/uL (4.5-5.90); White Blood Cell 8.3 10^3/uL (4.4-10.8)
[2023-06-02 07:29] LABS: BUN/Creatinine Ratio 18.7 (10.0-20.0); Blood Urea Nitrogen 20 mg/dL (9-23); Glucose 110 mg/dL (74-106)
[2023-06-02 08:00] VITALS: PULSE 53; PULSE 57; RESP 16; O2SAT 98
[2023-06-02 09:17] VITALS: BP 112/69; PULSE 53; RESP 16; TEMP 98.6; O2SAT 98
[2023-06-02] MEDS ORDERED: SPIR25TA PO (10:44)
[2023-06-02] MEDS ORDERED: DOXY-286 PO (10:44)
[2023-06-02 12:12] VITALS: BP 120/65; PULSE 78; RESP 16; TEMP 98.6; O2SAT 98
[2023-06-02 12:37] VITALS: O2SAT 96
== END 2023-06-02 15:30 | disposition home or self-care (01) | DRG 870 ==
LOC: ER 22:14 → ICU WEST 05-20 02:09 → TELE 05-20 02:09 → ICU WEST 05-20 18:07 → TELE-EAST 05-27 18:28
PROVIDERS: ADMIT Nurse Practitioner Family; ATTEND Internal Medicine
PROC: 5A1955Z Respiratory Ventilation, Greater than 96 Consecutive Hours (ICD-10-PCS; principal; 2023-05-20)
PROC: 0BH17EZ Insertion of Endotracheal Airway into Trachea, Via Natural or Artificial Opening (ICD-10-PCS; 2023-05-20)
PROC: 02HV33Z Insertion of Infusion Device into Superior Vena Cava, Percutaneous Approach (ICD-10-PCS; 2023-05-22)
PROC: B548ZZA Ultrasonography of Superior Vena Cava, Guidance (ICD-10-PCS; 2023-05-22)
PROC: 0B9M8ZZ Drainage of Bilateral Lungs, Via Natural or Artificial Opening Endoscopic (ICD-10-PCS; 2023-05-23)
PROC: 5A1935Z Respiratory Ventilation, Less than 24 Consecutive Hours (ICD-10-PCS; 2023-05-27)
PROC: 5A1935Z Respiratory Ventilation, Less than 24 Consecutive Hours (ICD-10-PCS; 2023-05-29)
DX: A41.9 Sepsis, unspecified organism (principal); J15.69 Pneumonia due to other Gram-negative bacteria; I50.43 Acute on chronic combined systolic (congestive) and diastolic (congestive) heart failure; J96.01 Acute respiratory failure with hypoxia; I21.A1 Myocardial infarction type 2; N17.9 Acute kidney failure, unspecified; E87.20 Acidosis, unspecified; J44.0 Chronic obstructive pulmonary disease with (acute) lower respiratory infection; I11.0 Hypertensive heart disease with heart failure; Z20.822 Contact with and (suspected) exposure to COVID-19; E66.9 Obesity, unspecified; E78.5 Hyperlipidemia, unspecified; F15.10 Other stimulant abuse, uncomplicated; I25.10 Atherosclerotic heart disease of native coronary artery without angina pectoris; G47.00 Insomnia, unspecified; R73.9 Hyperglycemia, unspecified; I25.2 Old myocardial infarction; Z95.1 Presence of aortocoronary bypass graft; Z79.84 Long term (current) use of oral hypoglycemic drugs; Z79.82 Long term (current) use of aspirin; Z79.899 Other long term (current) drug therapy; Z82.0 Family history of epilepsy and other diseases of the nervous system; Z83.3 Family history of diabetes mellitus; Z82.3 Family history of stroke; Z82.5 Family history of asthma and other chronic lower respiratory diseases; Z82.49 Family history of ischemic heart disease and other diseases of the circulatory system; Z68.26 Body mass index [BMI] 26.0-26.9, adult
CPT/HCPCS: 36415; 36600; 70450; 71045; 71250; 80048; 80053; 80307; 81001; 82805; 83036; 83605; 83735; 83880; 84132; 84484; 85007; 85025; 85027; 85610; 85730; 87040; 87070; 87081; 87086; 87205; 87426; 87804; 92507; 92610; 93005; 93306; 94002; 94003; 94640; 97110; 97116; 97163; 97530; 99291; C9113; G0378; J0330; J1885; J2250; J2405; J2543; J3480; J3490; J7060

== ENCOUNTER 2024-09-26 11:08 | Emergency (ER) | payer MEDICARE, MEDICAID ==
[~2024-09-26] VITALS: Ht 170.2 cm; Wt 88.0 kg
[~2024-09-26 11:08] MED LIST changes: -ASPI-543 PO; -ATOR20TA PO; -CAR125T OR; -CARV3.1240 PO; +DOXY-286 PO; -FURO1TAB31 PO; -LOS25T PO; -POTA-220 PO; -POTA1TAB4 PO; +SPIR25TA PO
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
--- NOTE | 2024-09-26 12:03 | DVH ---
EXAM: XY R FOOT 3 VIEW XRAY CLINICAL INDICATION: trauma TECHNIQUE: XY R FOOT 3 VIEW XRAY Comparison: None FINDINGS/IMPRESSION: Postsurgical changes involving the midfoot. Nondisplaced fracture involving the base of the 1st proxi mal phalanx.
[2024-09-26 12:28] VITALS: BP 120/81; PULSE 80; RESP 16; O2SAT 96
[2024-09-26] MEDS: HYDROcodone-ACET 5/325MG TAB PO ONE (12:28)
[2024-09-26 12:37] VITALS: TEMP 98.2
[2024-09-26] MEDS: ACETAMINOPHEN 325 MG TAB PO ONE (12:37)
== END 2024-09-26 12:42 | disposition home or self-care (01) ==
LOC: ER 11:08
DX: S92.901A Unspecified fracture of right foot, initial encounter for closed fracture (principal); I50.9 Heart failure, unspecified; E11.9 Type 2 diabetes mellitus without complications; J44.9 Chronic obstructive pulmonary disease, unspecified; Z79.899 Other long term (current) drug therapy; Z95.1 Presence of aortocoronary bypass graft; Z90.89 Acquired absence of other organs; X58.XXXA Exposure to other specified factors, initial encounter; Y93.89 Activity, other specified; Y92.89 Other specified places as the place of occurrence of the external cause; Y99.8 Other external cause status
CPT/HCPCS: 29515; 73630